=== PATIENT | female | born 1990 | race Caucasian/White ===

== ENCOUNTER → 2018-02-28 20:13 | Outpatient (CLI) | payer MEDICAID, SELFPAY | PROVIDERS: Family Provider Student in an Organized Health Care Education/Training Program; PCP Student in an Organized Health Care Education/Training Program; Visit Provider Psychiatry & Neurology Psychiatry | DX: G47.10 Hypersomnia, unspecified (principal) | CPT/HCPCS: 95810 ==

== ENCOUNTER → 2018-03-01 07:00 | Outpatient (CLI) | payer MEDICAID, SELFPAY ==
[2018-03-01 09:05] LABS: Amphetamine Urine VISTA NEGATIVE (<1000 ng/mL); Barbiturate Urine VISTA NEGATIVE (< 200 ng/mL); Benzodiazepine Urine VISTA NEGATIVE (< 200 ng/mL); Cocaine Urine VISTA NEGATIVE (< 300 ng/mL); Ecstacy Urine VISTA NEGATIVE (< 500 ng/mL); Methadone Urine VISTA NEGATIVE (< 300 ng/mL); PCP Urine VISTA NEGATIVE (< 25 ng/mL); THC Urine VISTA NEGATIVE (< 50 ng/mL); Vista UDS pH Range 6
== END ==
PROVIDERS: Psychiatry & Neurology Neurology; Family Provider Student in an Organized Health Care Education/Training Program; PCP Student in an Organized Health Care Education/Training Program
DX: G47.10 Hypersomnia, unspecified (principal); G47.00 Insomnia, unspecified; J45.909 Unspecified asthma, uncomplicated; F32.9 Major depressive disorder, single episode, unspecified; F17.200 Nicotine dependence, unspecified, uncomplicated; Z79.899 Other long term (current) drug therapy
CPT/HCPCS: 80307; 95805

== ENCOUNTER 2018-11-06 15:26 | Emergency (ER) | payer MEDICAID, SELFPAY ==
[2018-11-06 15:29] VITALS: BP 106/79; PULSE 106; RESP 14; TEMP 36.8; O2SAT 100; BMI 26.6
--- NOTE | 2018-11-06 15:47 | ED.VISSUMM ---
- ER Visit Summary Date of Service: 11/06/18 Chief Complaint: [Back pain] History of Present Illness: The patient is a 28 F [presents the emergency department complaint of back pain that started 8 days ago. Patient has had no trauma. She states she has had a similar type pain off and on for the last 5 years. Patient states sometimes the pain will last a few days and at times will last up to a few months. Patient is undergone physical therapy for this. Patient has seen a chiropractor for this. Patient saw nurse practitioner for her primary care physician for this pain 6 days ago and was referred to a spine surgeon for follow-up. Patient attempted to make a appointment with a spine surgeon Dr. Siu, however she was told she would need to have an MRI first before she could schedule the appointment and her nurse practitioner will not order an MRI for her. Patient complains of low back pain that kind of radiates out to the periphery and into her buttocks. She denies any weakness in extremities. She denies any change in bowel or bladder function. Pain is worse with certain movements such as bending. Patient states that over the years she has had multiple x-rays of her low back and no abnormality has been found other than a slight curvature in her back. Patient never had surgery on her back. She has not had any fevers.] Physical Examination: [HEENT-PERRLA, EOMI. Cranial nerves II through XII grossly intact. TMs clear. Mucous membranes moist. No adenopathy. Cardiovascular-regular rate and rhythm without murmur or ectopy Lungs-clear to auscultation, chest wall stable without crepitus or subcu emphysema Abdomen-normoactive bowel sounds, soft, nontender, no rebound or rigidity, no peritoneal signs. Back exam-patient has diffuse tenderness palpation over the lumbar spine and paraspinal musculature. She has negative straight leg raises. Deep tendon reflexes are plus out of 4 bilaterally at the patella and Achilles. Patient has normal L5 extension. Patient has normal sensation to light touch. Extremities-intact ?4, normal range of motion, normal pulses, atraumatic] Test Results: [None indicated] Emergency Department Course and Treatment: [This point I do not feel any imaging is indicated and patient drove herself to the ER therefore I will not medicate her here. Patient already on muscle relaxer and prednisone.] Treatment Plan: [Patient will be given a prescription for [place] and referral to neurosurgery for follow-up. Patient may require further imaging such as possibly MRI to evaluate further although I do not see any evidence of cauda equina at this time.] Disposition: [Discharged home in stable condition] Impression: [Acute exacerbation of chronic back pain] This note was generated with [employer] dictation software. It may contain incorrect words, spelling, and punctuation that were not noted in review of the chart prior to signing ED Disposition - Plan for ED Patient: Referrals: Haroon Samson DO [Primary Care Provider] -
--- NOTE | 2018-11-06 15:50 | ED.DCSUM_ITS ---
- ER Visit Summary Date of Service: 11/06/18 Chief Complaint: [Back pain] History of Present Illness: The patient is a 28 F [presents the emergency department complaint of back pain that started 8 days ago. Patient has had no trauma. She states she has had a similar type pain off and on for the last 5 years. Patient states sometimes the pain will last a few days and at times will last up to a few months. Patient is undergone physical therapy for this. Patient has seen a chiropractor for this. Patient saw nurse practitioner for her primary care physician for this pain 6 days ago and was referred to a spine surgeon for follow-up. Patient attempted to make a appointment with a spine surgeon Dr. Siu, however she was told she would need to have an MRI first before she could schedule the appointment and her nurse practitioner will not order an MRI for her. Patient complains of low back pain that kind of radiates out to the periphery and into her buttocks. She denies any weakness in extremities. She denies any change in bowel or bladder function. Pain is worse with certain movements such as bending. Patient states that over the years she has had multiple x-rays of her low back and no abnormality has been found other than a slight curvature in her back. Patient never had surgery on her back. She has not had any fevers.] Physical Examination: [HEENT-PERRLA, EOMI. Cranial nerves II through XII grossly intact. TMs clear. Mucous membranes moist. No adenopathy. Cardiovascular-regular rate and rhythm without murmur or ectopy Lungs-clear to auscultation, chest wall stable without crepitus or subcu emphysema Abdomen-normoactive bowel sounds, soft, nontender, no rebound or rigidity, no peritoneal signs. Back exam-patient has diffuse tenderness palpation over the lumbar spine and paraspinal musculature. She has negative straight leg raises. Deep tendon reflexes are plus out of 4 bilaterally at the patella and Achilles. Patient has normal L5 extension. Patient has normal sensation to light touch. Extremities-intact ?4, normal range of motion, normal pulses, atraumatic] Test Results: [None indicated] Emergency Department Course and Treatment: [This point I do not feel any imaging is indicated and patient drove herself to the ER therefore I will not medicate her here. Patient already on muscle relaxer and prednisone.] Treatment Plan: [Patient will be given a prescription for [place] and referral to neurosurgery for follow-up. Patient may require further imaging such as possibly MRI to evaluate further although I do not see any evidence of cauda equ tariq at this time.] Disposition: [Discharged home in stable condition] Impression: [Acute exacerbation of chronic back pain] This note was generated with [employer] dictation software. It may contain incorrect words, spelling, and punctuation that were not noted in review of the chart prior to signing ED Disposition - Plan for ED Patient: Referrals: Haroon Samson DO [Primary Care Provider] -
--- NOTE | 2018-11-06 15:52 | DCINST.ED_ITS ---
ED Disposition - Plan for ED Patient: Instructions: ED Neck Back Pain General Prescriptions: Hydrocodone Bitart/Apap 5-325 [[place] 5MG-325MG] 1 tab PO Q4H PRN PRN 2 Days #20 tab PRN Reason: Pain Referrals: Haroon Samson DO [Primary Care Provider] - 3-5 Days Andrea Plummer MD [NON-STAFF] - 3-5 Days
== END 2018-11-06 16:06 | disposition home or self-care (01) ==
LOC: ED 15:51
PROVIDERS: Emergency Provider Emergency Medicine; Family Provider Student in an Organized Health Care Education/Training Program; PCP Student in an Organized Health Care Education/Training Program
DX: M54.9 Dorsalgia, unspecified (principal); G89.29 Other chronic pain; Z72.0 Tobacco use
CPT/HCPCS: 99282

== ENCOUNTER 2020-05-20 00:45 | Emergency (ER) | payer MEDICAID, SELFPAY ==
[2020-05-20 00:46] VITALS: BP 112/66; PULSE 112; RESP 16; TEMP 36.9; O2SAT 98; BMI 20.9
--- NOTE | 2020-05-20 00:56 | EKG12_ITS ---
Test Reason : DYSRHYTHMIA Blood Pressure : / mmHG Vent. Rate : 107 BPM Atrial Rate : 107 BPM P-R Int : 126 ms QRS Dur : 082 ms QT Int : 314 ms P-R-T Axes : 061 070 040 degrees QTc Int : 419 ms Sinus tachycardia Otherwise normal ECG Confirmed by GREGORIO NAIDU, ABRAN ([id number]), photography editor ELLIOT REYES ([id number]) on 05/21/2020 11:31:54 AM Referred By: KIZZY Confirmed By:ABRAN PERKINS MD
--- NOTE | 2020-05-20 00:57 | ED.VIS.GEN ---
History of Present Illness Chief Complaint: Other, Pain/Inj Informant: Patient Onset: Days Context: Gradual Onset Timing: Continuous Current Severity: Moderate Maximum Severity: Moderate Narrative: The patient is a 30-year-old female with medical history significant for asthmatic bronchitis and insomnia that presents to the emergency department with right-sided chest pain. She states that she has been coughing for the past 3 days. She states that she said a persistent ache across her right chest that is worse when she coughs or pushes on it. She denies being short of breath over baseline. States her inhaler does seem to help with her breathing, but nothing is helped the pain. She has no history of pulmonary embolus. She denies any leg swelling. She denies any recent travel. Prior similar symptoms: No Recent Illness/Hospitalization: No Past Medical History - Allergies and Home Meds Allergies/Adverse Reactions: Allergies Penicillins Allergy (Verified 11/06/18 15:26) Anaphylaxis Primary Care Physician: Haroon Samson DO [Primary Care Provider] - Prior records reviewed: Yes Past Medical History: - - Insomnia, anxiety Surgical History: noncontributory Smoking Status: Current every day smoker Review of Systems General: Denies: Chills, Fever, Sweats Eyes: Denies: Visual changes - bilaterally, Diplopia ENT: Denies: Rhinorrhea, Sore throat Cardiovascular: Reports: Chest pain. Denies: Palpitations Respiratory: Denies: Dyspnea, Cough, Dyspnea on exertion Gastrointestinal: Denies: Abdominal pain, Nausea, Vomiting, Diarrhea, Melena, Hematochezia Genitourinary: Denies: Dysuria, Hematuria, Frequency Musculoskeletal: Denies: Back pain, Extremity Pain Skin: Denies: Rash, Wounds Neurological: Denies: Headache, Weakness, Numbness Physical Exam Vital Signs/Narrative: Vital Signs Temp Pulse Resp BP Pulse Ox 05/20/20 00:46 98.4 F 112 H 16 112/66 98 Inital Vital Signs reviewed: Yes General: Well nourished, Well developed, No Acute Distress Head: Normocephalic, Atraumatic Eyes: Perrl, EOMI ENT: Moist mucous membranes, No rhinorrhea Neck: Supple, Nontender Cardiovascular: Regular rate, Regular rhythm, No murmurs Respiratory: No distress, CTA bilaterally, Chest tenderness Abdomen: Soft, Nontender, Nondistended, Normal bowel sounds Back: Nontender, Normal Inspection Extremities: Nontender, No edema Skin: Normal color, No rash Neurological: Alert, Oriented x3, Cranial nerves II-XII grossly intact, Normal Strength, Normal Sensation Psychological: Normal affect, Normal Mood Diagnostic/Tx/Re-eval Clinical Impression(s) from Imaging Studies Chest X-Ray 05/20/20 01:27 IMPRESSION: No acute cardiopulmonary disease identified. Electronically Signed: Vitor De Luna, at 2:21 EDT Tel , Service support , - Rhythm Strip Rhythm Strip: Sinus Rhythm Rate: 90 Ectopy: None - EKG Initial EKG Interpretation: Sinus Rhythm, No Acute Injury Pattern Prior: No Prior - Medical Decision Making The patient presents with anterior chest wall pain with coughing. It is entirely reproducible on exam. There is no pleuritic component. Plan was to do metabolic work-up, but the patient states she is deathly afraid of needles and did not want this done. I obtained an x-ray and an EKG. Both were unremarkable. The patient was treated with Motrin with some improvement. Given her productive sputum and history of underlying lung disease, I will cover her with azithromycin. She will also be continued on anti-inflammatories. The patient will be discharged home. Impression 1. Costochondritis ED Disposition - Plan for ED Patient: Instructions: ED Bronchitis Asthmatic Prescriptions: Naproxen [Naprosyn] 500 mg PO BID PRN #20 tab Prescription Printed Azithromycin [Zithromax] 250 mg PO DAILY #4 tab Prescription Printed Referrals: Haroon Samson DO [Primary Care Provider] -
[2020-05-20] MEDS: Ibuprofen 600 MG Tablet PO (01:15)
--- NOTE | 2020-05-20 01:20 | ED.RN ---
patient refused iv and blood draw. patient states no needles are going into me. dr. garcia notified.
--- NOTE | 2020-05-20 01:27 | RAD_ITS ---
STUDY: X-RAY CHEST REASON FOR EXAM: Female, 30 years old. patient having right sided clavicle and chest pain that started this morning. patient with severe cough for about 4 days. TECHNIQUE: Frontal and lateral views of the chest. COMPARISON: None. FINDINGS: The lungs are clear and expanded. There is no demonstrated pleural abnormality. Normal size heart. Normal mediastinum and janice. Normal visualized pulmonary arteries. Normal visualized aortic arch and descending thoracic aorta. Scoliotic curvature to the spine. Normal visualized ribs, clavicles, and shoulders. There is no demonstrated abnormality of the visualized soft tissue structures of the upper abdomen. RAD/Chest PA and Lateral IMPRESSION: No acute cardiopulmonary disease identified. Electronically Signed: Vitor De Luna, at 2:21 EDT Tel , Service support ,
[2020-05-20] MEDS: Azithromycin 250 MG Tablet 500 MG PO (02:33)
[2020-05-20] MEDS: HYDROcodone Bitartrate/Apap 5/325 Tablet PO (02:34)
[2020-05-20 02:39] VITALS: PULSE 106; RESP 17; O2SAT 98
== END 2020-05-20 02:40 | disposition home or self-care (01) ==
PROVIDERS: Emergency Provider Emergency Medicine; PCP Student in an Organized Health Care Education/Training Program
DX: M94.0 Chondrocostal junction syndrome [Tietze] (principal); F41.9 Anxiety disorder, unspecified; J45.909 Unspecified asthma, uncomplicated; G47.00 Insomnia, unspecified; Z79.899 Other long term (current) drug therapy; F17.200 Nicotine dependence, unspecified, uncomplicated
CPT/HCPCS: 71046; 93005; 99284

== ENCOUNTER 2021-10-23 19:58 | Inpatient (IN) | payer MEDICAID, SELFPAY ==
[2021-10-23 19:58] VITALS: BP 127/81; PULSE 111; RESP 16; TEMP 36.1; O2SAT 100; BMI 22.8
[2021-10-23 20:03] VITALS: BP 127/81; PULSE 111; RESP 16; TEMP 36.1; O2SAT 100
[2021-10-23] MEDS: LORazepam 2 MG/ML Syringe 0.5 MG IV (20:30)
[2021-10-23] MEDS: HYDROmorphone 0.5 MG/0.5 ML SYRINGE IV ×2 (20:31→22:32)
[2021-10-23 20:34] LABS: Absolute Lymphocyte Count 3.02 X10^3/uL (0.83-4.51); Absolute Neutrophil Count 8.8 X10^3/uL (2.0-7.7); Basophil# 0.06 X10^3/uL; Basophil% 0.4 % (0-1); Eosinophil# 0.32 X10^3/uL; Eosinophils% 2.4 % (0-5); Hematocrit 44.5 % (37-47); Hemoglobin 15.4 g/dL (12.0-15.0); Lymphocyte # 3.02 X10^3/ul (0.83-4.51); Lymphocyte % 22.5 % (19-41); Mean Corp Hgb Conc 34.6 g/dL (32-36); Mean Corpuscular Hgb 31.9 pg (27.0-32.0); Mean Corpuscular Volume 92.1 fL (81-99); Mean Platelet Vol. 9.6 fl (6.2-12.0); Monocyte# 1.15 X10^3/uL; Monocyte% 8.6 % (0-10); NRBC Flagged by Analyzer 0 % (0-5); Neutrophil # 8.81 X10^3/uL (2.7-7.7); Neutrophil % 65.7 % (47-70); Platelet Count 260 K/mm3 (150-450); RBC Distribution Width SD 43.8 fl (35.1-43.9); Red Blood Count 4.83 M/mm3 (4.2-5.4); White Blood Count 13.4 K/mm3 (4.4-11.0)
--- NOTE | 2021-10-23 20:45 | CT_ITS ---
EXAM: CT MAXILLOFACIAL WITH INTRAVENOUS CONTRAST CLINICAL INDICATION: face swelling TECHNIQUE: Helically acquired images were obtained of the face with intravenous contrast. This CT exam was performed using one or more of the following dose reduction techniques: automated exposure control, adjustment of the mA and/or kV according to patient size, and/or use of iterative reconstruction technique. This report was created using [employer] report [employer] technology. CONTRAST: IV 100mL Isovue-300 COMPARISON: None. FINDINGS: BONES/JOINTS: Unremarkable. No displaced fracture. No discrete lytic or blastic abnormalities. SOFT TISSUES: Along the left maxilla there is a subperiosteal abscess measuring 13 x 4mm. Series 2 image 32. There is overlying soft tissue swelling. ORBITS: Unremarkable. Both globes are unremarkable. Extraocular muscles are normal. Retrobulbar fat appears unremarkable. SINUSES: Left maxillary sinus disease. MASTOID AIR CELLS: Unremarkable as visualized. Clear. DENTAL: No acute findings. No periodontal osseous erosion. CT/Sinus/Facial Bone WITH Contras IMPRESSION: 1. Left maxillary sinus disease. 2. Along the left maxilla there is a subperiosteal abscess measuring 13 x 4mm. Series 2 image 32. There is overlying soft tissue swelling. Electronically Signed: Juan Callaway MD at 21:11 EST ,
[2021-10-23 20:51] LABS: ALB/GLOB Ratio 1.1 RATIO (0.9-2.4); AST(SGOT) 11 U/L (15-37); Alanine Aminotransfer ALT/SGPT 17 U/L (13-56); Alkaline Phosphatase 56 U/L (45-117); Anion Gap 5 (5-15); BUN 6 mg/dL (7-18); BUN/Creat Ratio 7.2 RATIO (10-20); Calcium,Total 9.4 mg/dL (8.5-10.1); Chloride 108 mmol/L (98-107); Creatinine, Serum 0.83 mg/dL (0.55-1.02); EST Glomerular Filtration Rate 84 mL/min (>60); Est Glom Filt Rate - Afr Amer 101 mL/min (>60); Estimated Creatinine Clearance 79.75 ml/min; Globulin 3.8 g/dL (2.2-4.2); Glucose 92 mg/dL (74-106); Potassium 3.5 mmol/L (3.5-5.1); Protein, Total 7.8 g/dL (6.4-8.2); Sodium Level 139 mmol/L (136-145)
[2021-10-23] MEDS: Ceftriaxone 1 GM/50 ML BAG IV (20:55)
[2021-10-23] MEDS: Ciprofloxacin 400 MG/200 ML BAG 200 MG IV (21:19)
--- NOTE | 2021-10-23 21:34 | EDS_ITS ---
HPI History of Present Illness Chief Complaint: Edema Narrative Narrative: Patient presents with left-sided facial swelling. She was seen on outpatient setting and was given clindamycin she completed 3 days of 300 mg 4 times daily, her facial swelling is worse. Apparently it was presumed that the swelling was odontogenic. Patient has no fever or chills. She has no pain with movement of her left eye, no difficulty swallowing or sore throat. PFSH PFSH Home Medications L norgest/e.estradiol-e.estrad [Seasonique 0.15-0.03-0.01 Tab] 1 ea PO DAILY 10/07/16 [History Last Taken Unknown] clonazepam 1 mg PO TID PRN 11/06/18 [History Last Taken Unknown] dextroamphetamine-amphetamine [Adderall 30 mg Tablet] 30 mg PO DAILY 11/06/18 [History Last Taken Unknown] azithromycin 250 mg PO DAILY #4 tab 05/20/20 [Rx Last Taken Unknown] naproxen 500 mg PO BID PRN #20 tab 05/20/20 [Rx Last Taken Unknown] Allergy/AdvReac Type Severity Reaction Status Date / Time Penicillins Allergy Anaphylaxis Verified 11/06/18 15:26 Social History Smoking Status: Current every day smoker tobacco type: cigarettes ROS ROS ED ROS Narrative Past medical history: Reviewed, noncontributory Medications: Reviewed Social history: Noncontributory Review of systems: All systems negative except as indicated General: No fever Eyes: No visual changes ENT: As in HPI Neck: No neck pain Cardiovascular: No chest pain Respiratory: No shortness of breath or cough Gastrointestinal: No abdominal pain, nausea vomiting or diarrhea Musculoskeletal: Denies myalgias no difficulty with ambulation Skin: No rash Neurological: No memory loss, confusion or any focal weakness, no facial droop Psych: No recent behavioral changes Hematologic: No easy bleeding or easy bruising EXAM Physical Exam Narrative Exam Narrative: Physical exam General: Patient appears uncomfortable. Head: Normocephalic, Atraumatic Eyes: Conjunctiva not pale, full range of motion without any pain ENT: Patient has left-sided facial edema, there is some periorbital edema but as above there is no pain with full range of motion. She has a normal posterior oropharynx with a normal voice. Normal soft palate. No swelling edema or pain under the tongue. Dental: Patient has widespread dental disease but no significant periapical abscess or any kind of significant pain any particular tooth. Neck: Supple, Nontender, No lymphadenopathy Cardiovascular: Slight tachycardic Respiratory: No distress, CTA bilaterally Abdomen: Soft, Nontender, Nondistended Back: Nontender, Normal Inspection. Negative for: CVA tenderness Extremities: Nontender, No edema Skin: Normal color, No rash Neurological: Alert, Normal Strength, Normal Sensation Psychological: She is quite anxious Const Vital Signs: 10/23/21 19:58 10/23/21 20:03 Temperature 96.9 F L 96.9 F L Temperature Source Temporal Temporal Pulse Rate 111 H 111 H Respiratory Rate 16 16 Blood Pressure 127/81 H 127/81 H Blood Pressure Mean 96 96 Pulse Ox 100 100 Oxygen Delivery Method Room Air Room Air MDM MDM MDM Narrative Medical decision making narrative: Patient is found to have a periosteal maxillary abscess, I talked to ENT, apparently they will be able to consult on the patient since or maxillary facial surgery is not available. Discussed with hospitalist for admission. Antibiotics were given. Lab Data Labs: Laboratory Results - last 24 hr 10/23/21 10/23/21 20:20 20:20 WBC 13.4 H RBC 4.83 Hgb 15.4 H Hct 44.5 MCV 92.1 MCH 31.9 MCHC 34.6 RDW Std Deviation 43.8 RDW Coeff of Sriram 13.0 Plt Count 260 MPV 9.6 Immature Gran % (Auto) 0.400 Neut % (Auto) 65.7 Lymph % (Auto) 22.5 [place] % (Auto) 8.6 Eos % (Auto) 2.4 Baso % (Auto) 0.4 Absolute Neuts (auto) 8.8 H Absolute Lymphs (auto) 3.02 Nucleated RBC % 0 Sodium 139 Potassium 3.5 Chloride 108 H Carbon Dioxide 26.0 Anion Gap 5 BUN 6 L Creatinine 0.83 Estim Creat Clear Calc 79.75 Est GFR (MDRD) Af Amer 101 Est GFR (MDRD) Non-Af 84 BUN/Creatinine Ratio 7.2 L Glucose 92 Calcium 9.4 Total Bilirubin 0.60 AST 11 L ALT 17 Alkaline Phosphatase 56 Total Protein 7.8 Albumin 4.0 Globulin 3.8 Albumin/Globulin Ratio 1.1 Radiography Diagnostic Testing: Clinical Impression(s) from Imaging Studies Facial/Sinus 10/23/21 20:45 IMPRESSION: 1. Left maxillary sinus disease. 2. Along the left maxilla there is a subperiosteal abscess measuring 13 x 4mm. Series 2 image 32. There is overlying soft tissue swelling. Electronically Signed: Juan Callaway MD at 21:11 EST Reading Location ID and State: [facility] / [place] , Service support , Discharge Plan Triage Chief Complaint: Edema ED Provider: Keon Sargent Dx/Rx/DC Orders Clinical Impression: Abscess of face Prescriptions: No Action L norgest/e.estradiol-e.estrad [Seasonique] 1 EACH Tbdspk.3mo 1 ea PO DAILY RF: 0 clonazepam 1 MG tablet 1 mg PO TID PRN RF: 0 dextroamphetamine-amphetamine [Adderall] 30 MG tablet 30 mg PO DAILY RF: 0 azithromycin 250 MG tablet 250 mg PO DAILY Qty: 4 RF: 0 naproxen 500 MG tablet 500 mg PO BID PRN Qty: 20 RF: 0 Primary Care Provider: Haroon Samson Referrals: Haroon Samson DO [Primary Care Provider] - Disposition Disposition: Acute Care Hospital [facility]
--- NOTE | 2021-10-23 21:44 | PCM.HP.STD ---
HPI - General General Date of Admission: 10/23/21 HPI Narrative RUPALI YA, is a 31 F who presents with left facial pain and swelling. She states that this has been going on for the last 3 days she was started on clindamycin as an outpatient and says that she has been taking it consistently. She cannot take penicillin secondary to anaphylaxis. She presented to the hospital because of worsening pain and swelling. CT of her face demonstrates a subperiosteal abscess along the left maxilla. ENT was notified from the ER and is willing to evaluate the patient for possible drainage. She was given multiple antibiotics in the ER as well as pain medication. She denies any fevers or chills at home denies any facial trauma but states that she knows that she has several bad teeth on that side that she has not addressed as an outpatient. [facility] Home Medications NK 10/23/21 [History Last Taken Unknown] Allergy/AdvReac Type Severity Reaction Status Date / Time Penicillins Allergy Anaphylaxis Verified 11/06/18 15:26 no significant family history Surgical History (Updated 10/23/21 @ 22:[address] Marcos Bowden MD) Status post tooth extraction Social History Smoking Status: Current every day smoker tobacco type: cigarettes ROS Constitutional Constitutional: Denies chills, fatigue, fever(s) or malaise Eyes Eyes: Denies blurry vision ENT HEENT: Reports facial pain; Denies headache(s) or nasal discharge Cardiovascular Cardiovascular: Denies chest pain, dyspnea on exertion or syncope Respiratory/Chest Respiratory/Chest: Denies cough, shortness of breath at rest or shortness of breath with exertion Gastrointestinal Gastrointestinal: Denies constipation, diarrhea, nausea or vomiting Genitourinary Genitourinary: Denies dysuria Neurologic Neurologic: Denies focal weakness, numbness or tremor(s) Psychiatric Psychiatric: Denies anxiety or depression Vital Signs Vital Signs Vital Signs: 10/23/21 19:58 10/23/21 20:03 Temperature 96.9 F L 96.9 F L Temperature Source Temporal Temporal Pulse Rate 111 H 111 H Respiratory Rate 16 16 Blood Pressure 127/81 H 127/81 H Blood Pressure Mean 96 96 Pulse Ox 100 100 Oxygen Delivery Method Room Air Room Air Weight Weight: 129 lb Body Mass Index (BMI) 22.8 Physical Exam Const alert, oriented x3 and no apparent distress General Appearance: cooperative HEENT normocephalic and moist oral mucous membranes Face and Sinus: facial erythema left Positive for maxilla and facial edema left Positive for maxilla; Negative for facial crepitus or fluctuance Eyes PERRL, EOMs intact bilaterally and conjunctivae normal Neck supple and no JVD Resp normal respiratory effort, no retractions, no use of accessory muscles and clear to auscultation bilaterally Auscultation: Negative for crackles, rales, rhonchi or wheezes Cardio regular rate, regular rhythm, S1 normal heart sound, S2 normal heart sound and no murmurs GI soft to palpation, non-tender and non-distended; Negative for hepatosplenomegaly Extremity no clubbing, cyanosis or edema Skin no rashes or lesions noted Neuro no focal motor deficits and no sensory deficits noted Psych affect normal Appearance: appropriate Results Lab / Micro Data Result Diagrams: 10/23/21 20:20 10/23/21 20:20 Labs: Laboratory Results - last 24 hr 10/23/21 20:20: WBC 13.4 H, RBC 4.83, Hgb 15.4 H, Hct 44.5, MCV 92.1, MCH 31.9, MCHC 34.6, RDW Std Deviation 43.8, RDW Coeff of Sriram 13.0, Plt Count 260, MPV 9.6, Immature Gran % (Auto) 0.400, Neut % (Auto) 65.7, Lymph % (Auto) 22.5, [place] % (Auto) 8.6, Eos % (Auto) 2.4, Baso % (Auto) 0.4, Absolute Neuts (auto) 8.8 H, Absolute Lymphs (auto) 3.02, Nucleated RBC % 0 10/23/21 20:20: Sodium 139, Potassium 3.5, Chloride 108 H, Carbon Dioxide 26.0, Anion Gap 5, BUN 6 L, Creatinine 0.83, Estim Creat Clear Calc 79.75, Est GFR (MDRD) Af Amer 101, Est GFR (MDRD) Non-Af 84, BUN/Creatinine Ratio 7.2 L, Glucose 92, Calcium 9.4, Total Bilirubin 0.60, AST 11 L, ALT 17, Alkaline Phosphatase 56, Total Protein 7.8, Albumin 4.0, Globulin 3.8, Albumin/Globulin Ratio 1.1 Radiology Impression Facial/Sinus 10/23/21 20:45 IMPRESSION: 1. Left maxillary sinus disease. 2. Along the left maxilla there is a subperiosteal abscess measuring 13 x 4mm. Series 2 image 32. There is overlying soft tissue swelling. Electronically Signed: Juan Callaway MD at 21:11 EST , Assessment & Plan Assessment/Plan (1) Abscess of face: PLAN: 1. Failed outpatient antibiotic for left maxillary subperiosteal abscess ?She was on 300 mg of clindamycin every 6 hours, will transition to 600 mg q. 8 and also add Levaquin ?She received a dose of vancomycin, Rocephin, and Cipro in the ER ?She states that she has an antibiotic reaction to penicillin ?We will consult ENT for possible intervention ?We will provide her with morphine and oxycodone to try to control her pain if necessary can also add Toradol ?Also put her on some IV fluids as she has not been eating or drinking very much over the last several days DVT: Ambulation Charges/Coding Visit Charges Inpatient E&M: 70162 Init Hosp L2
[2021-10-23 22:26] VITALS: BP 117/87; PULSE 78; RESP 18; TEMP 36.7; O2SAT 100
[2021-10-23 23:13] VITALS: BMI 22.4
[2021-10-23 23:32] VITALS: BP 119/75; PULSE 88; RESP 16; TEMP 37; O2SAT 98
[2021-10-24] MEDS: 0.9% Normal Saline 1,000 ML 100 ML IV ×2 (00:24→10:46)
[2021-10-24] MEDS: 0.9% Saline Lock 10 ML Syringe IV ×2 (00:24→13:12)
[2021-10-24] MEDS: DiphenhydrAMINE 25 MG Capsule PO ×2 (00:26→13:06)
--- NOTE | 2021-10-24 01:25 | NURSING ---
Redness noted to have subsided on pt's back/abd. Clinamycin hung at this time, pt educated to let staff know if she starts to feel itchy. Pt agrees.
[2021-10-24 05:22] VITALS: BP 112/81; PULSE 89; RESP 18; TEMP 36.9; O2SAT 97
[2021-10-24] MEDS: Morphine 2 MG/ML Syringe IV ×2 (05:26→13:11)
[2021-10-24 05:34] LABS: Absolute Lymphocyte Count 1.87 X10^3/uL (0.83-4.51); Absolute Neutrophil Count 9.6 X10^3/uL (2.0-7.7); Basophil# 0.04 X10^3/uL; Basophil% 0.3 % (0-1); Eosinophil# 0.15 X10^3/uL; Eosinophils% 1.2 % (0-5); Hematocrit 40.3 % (37-47); Hemoglobin 13.5 g/dL (12.0-15.0); Lymphocyte # 1.87 X10^3/ul (0.83-4.51); Lymphocyte % 14.6 % (19-41); Mean Corp Hgb Conc 33.5 g/dL (32-36); Mean Corpuscular Hgb 30.5 pg (27.0-32.0); Mean Corpuscular Volume 91.2 fL (81-99); Monocyte# 1.12 X10^3/uL; Monocyte% 8.7 % (0-10); NRBC Flagged by Analyzer 0 % (0-5); Neutrophil # 9.59 X10^3/uL (2.7-7.7); Neutrophil % 74.9 % (47-70); Platelet Count 249 K/mm3 (150-450); RBC Distribution Width CV 12.9 % (11.6-14.6); RBC Distribution Width SD 43.1 fl (35.1-43.9); Red Blood Count 4.42 M/mm3 (4.2-5.4); White Blood Count 12.8 K/mm3 (4.4-11.0)
[2021-10-24 06:04] LABS: Anion Gap 4 (5-15); BUN 6 mg/dL (7-18); BUN/Creat Ratio 9.7 RATIO (10-20); Calcium,Total 8.6 mg/dL (8.5-10.1); Chloride 110 mmol/L (98-107); Creatinine, Serum 0.62 mg/dL (0.55-1.02); EST Glomerular Filtration Rate 118 mL/min (>60); Est Glom Filt Rate - Afr Amer 143 mL/min (>60); Estimated Creatinine Clearance 102.07 ml/min; Glucose 79 mg/dL (74-106); Potassium 4.4 mmol/L (3.5-5.1); Sodium Level 137 mmol/L (136-145)
[2021-10-24] MEDS: oxyCODONE 5 MG Tablet PO (08:53)
[2021-10-24 10:03] VITALS: BP 118/74; PULSE 82; RESP 18; TEMP 37.2; O2SAT 100
[2021-10-24] MEDS: levoFLOXacin IV 750 MG/150 ML BAG 100 MG IV (10:46)
--- NOTE | 2021-10-24 11:40 | CASEMGMT ---
MAXINE THOMAS PREDATORY GAME HUNTER WILLIAM to room to meet with patient for initial transition planning/care coordination assessment. MAXINE THOMAS introduced self and role at [facility]. Pt laying in bed. Sig Darrius brown, @ bedside. Pt Care providers, pharmacy, and demographics verified/updated at this time. PCP: Dr Samson Specialists: None Preferred Pharmacy: [facility] Insurance: [employer] Prescription Benefit: Yes Living Will/HPOA: Pt does not currently have LW/HCPOA and declines info at this time. Pt states she would want her sig other, Darrius, to be healthcare decision maker but declines wanting to complete AD at this time. Pt and Darrius both made aware LNOK, which would be her parents, would be legal decision makers for healthcare in the event pt was unable to make decisions, but pt states still does not want to complete AD. LNOK: Darrius Chery. Pt's parents are still living, but pt states, They are to me. Living Arrangements: Lives w/sig stephanie, Darrius, and pt's 11-yr-old daughter. Independent. Self-employed Transportation: Pt and Darrius both drive DME: Denies using any DME and denies needs. HHC/SNF: No hx of either. No needs identified. PLAN: Home William [place] RN, CM
--- NOTE | 2021-10-24 11:52 | PCM.RX.CS ---
Consult Pharmacy has been consulted to manage selected antiobiotic: Vancomycin Type of Consult: New start Suspected Infection: Skin/Soft tissue Labs: Sodium 137 mmol/L (136-145) 10/24/21 05:00 Potassium 4.4 mmol/L (3.5-5.1) 10/24/21 05:00 Chloride 110 mmol/L (98-107) H 10/24/21 05:00 Carbon Dioxide 23.0 mmol/L (21.0-32.0) 10/24/21 05:00 Anion Gap 4 (5-15) L 10/24/21 05:00 BUN 6 mg/dL (7-18) L 10/24/21 05:00 Creatinine 0.62 mg/dL (0.55-1.02) 10/24/21 05:00 Est GFR (MDRD) Af Amer 143 mL/min (>60) 10/24/21 05:00 Est GFR (MDRD) Non-Af 118 mL/min (>60) 10/24/21 05:00 BUN/Creatinine Ratio 9.7 RATIO (10-20) L 10/24/21 05:00 Glucose 79 mg/dL (74-106) 10/24/21 05:00 Goal Trough: 15-20 mcg/mL Pharmacy Plan for Drug Dosing: NEW START IV VANCOMYCIN Consulting Physician: Dr. Sina Young Indication: Abcess Goal Trough: 15-20 SrCr: 0.62 CrCl: 102 mls/min Comments: pt to receive a 1500mg (25mg/kg) loading dose 10/24/21 at 1200 Vancomcyin Dose: based on pts weight and renal function, recommend an initial dose of 750mg q8h to start 8 hours after the loading dose. trough before the 4th total dose Pending Level: 10/25/21 at 1130 Pharmacy Service will continue to monitor and adjust dosing as required. Follow-Up Labs: Trough Vancomycin - 10/25/21 at 1130
--- NOTE | 2021-10-24 12:27 | PCM.PN.BLA ---
Progress Note Asked to see the patient at the request of Dr. Pritchard for a facial abscess History of present illness: Patient is a 31-year-old white female who for the past 4 days has had left facial pain. She was placed on clindamycin by an urgent care. Despite that her facial swelling has been getting worse. She presented to the emergency room last night. She had a CT scan which revealed a left premaxilla abscess. She was admitted for IV antibiotics. Past medical history: None Past surgical history: Dental extractions Allergies: Penicillin Medications: Clindamycin Social HX: +smoker Fam HX: non contributory ROS- PE: The patient is awake alert in no acute distress. Scalp and skull are normal. Nasal exam reveals no purulence. Mouth oropharynx reveals obvious fluctuance in the left maxillary gingivolabial sulcus. She is tender to palpation in this area. Neck is supple no adenopathy. Face reveals edema of the left cheek extending up into the left infraorbital area. There is no erythema of the periorbital tissue. wbc: =13.4 CT : Left premaxilla collection. Obvious periapical lucency on coronals of the corresponding tooth. There is some mild underlying inflammation at the floor of the left maxillary sinus without air-fluid levels in the maxillary sinus. Procedure: 1% lidocaine with epinephrine was injected into the mucosa overlying the intended incision in the gingivolabial sulcus. After sufficient anesthesia and vasoconstriction, an incision was made with a scalpel. I then placed a hemostat into the abscess cavity and drained the purulence. This was cultured. She tolerated this well without complications. Assessment: Facial abscess and facial cellulitis secondary to a dentigerous source. Plan: We will continue IV antibiotics as outlined by infectious disease. Follow cultures. She will need to follow up with oral surgery for tooth extraction.
--- NOTE | 2021-10-24 12:43 | PCM.CONS.GEN ---
Assessment & Plan Assessment/Plan (1) Abscess of face: PLAN: Consistent with dental source. Worsened on outpt clinda. High risk of cdiff with clinda and levaquin here. Likely Red Man Syndrome with vanc in the ED. Will do vanc/ceftriaxone/flagyl for broader coverage; benadryl and slowed infusion rate with the vanc. ENT is seeing for possible I&D. Will follow, thank you. Has had covid shot x2, encouraged her to get booster. D/w nursing and Dr. Vaz. HPI Consult Data Date of Consult: 10/24/21 HPI Narrative HPI Narrative: RUPALI YA, is a 31 F with past h/o dental abscesses, presented with 4 days progressive L face pain/swelling/redness. No drainage in her mouth, no fever. Was seen at [facility], given clinda 300mg 4x/day, sx worsened over the 3 days she took it. Came to ED, CT done, given vanc/ceftriaxone, developed rapid redness/flushing/itching, resolved with stopping abx and benadryl. Admitted on clinda/levaquin, feeling miserable. Full ROS performed and neg except as noted above. Reports throat closed with PCN at age 1. Has taken keflex without issue. [facility] Medical History Asthma Home Medications NK 10/23/21 [History Last Taken Unknown] Allergy/AdvReac Type Severity Reaction Status Date / Time Penicillins Allergy Anaphylaxis Verified 11/06/18 15:26 Family History no significant family his Surgical History Status post tooth extraction Social History Smoking Status: Current every day smoker tobacco type: cigarettes Physical Exam Const alert and oriented x3 General Appearance: cooperative Exam Limitations: no limitations HEENT normocephalic and head/scalp atraumatic HEENT Narrative: L face warmth, redness, induration Eyes PERRL and EOMs intact bilaterally Neck supple and No nodes Resp normal air movement and clear to auscultation bilaterally Cardio regular rate and regular rhythm GI soft to palpation, non-tender and non-distended Extremity no clubbing, cyanosis or edema Skin no rashes or lesions noted Neuro CN's II-XII intact bilaterally Lab / Micro Data Result Diagrams: 10/24/21 05:00 10/24/21 05:00 Labs: Laboratory Results - last 24 hr 10/23/21 20:20: WBC 13.4 H, RBC 4.83, Hgb 15.4 H, Hct 44.5, MCV 92.1, MCH 31.9, MCHC 34.6, RDW Std Deviation 43.8, RDW Coeff of Sriram 13.0, Plt Count 260, MPV 9.6, Immature Gran % (Auto) 0.400, Neut % (Auto) 65.7, Lymph % (Auto) 22.5, [place] % (Auto) 8.6, Eos % (Auto) 2.4, Baso % (Auto) 0.4, Absolute Neuts (auto) 8.8 H, Absolute Lymphs (auto) 3.02, Nucleated RBC % 0 10/23/21 20:20: Sodium 139, Potassium 3.5, Chloride 108 H, Carbon Dioxide 26.0, Anion Gap 5, BUN 6 L, Creatinine 0.83, Estim Creat Clear Calc 79.75, Est GFR (MDRD) Af Amer 101, Est GFR (MDRD) Non-Af 84, BUN/Creatinine Ratio 7.2 L, Glucose 92, Calcium 9.4, Total Bilirubin 0.60, AST 11 L, ALT 17, Alkaline Phosphatase 56, Total Protein 7.8, Albumin 4.0, Globulin 3.8, Albumin/Globulin Ratio 1.1 10/24/21 05:00: WBC 12.8 H, RBC 4.42, Hgb 13.5, Hct 40.3, MCV 91.2, MCH 30.5, MCHC 33.5, RDW Std Deviation 43.1, RDW Coeff of Sriram 12.9, Plt Count 249, MPV 10.0, Immature Gran % (Auto) 0.300, Neut % (Auto) 74.9 H, Lymph % (Auto) 14.6 L, [place] % (Auto) 8.7, Eos % (Auto) 1.2, Baso % (Auto) 0.3, Absolute Neuts (auto) 9.6 H, Absolute Lymphs (auto) 1.87, Nucleated RBC % 0 10/24/21 05:00: Sodium 137, Potassium 4.4, Chloride 110 H, Carbon Dioxide 23.0, Anion Gap 4 L, BUN 6 L, Creatinine 0.62, Estim Creat Clear Calc 102.07, Est GFR (MDRD) Af Amer 143, Est GFR (MDRD) Non-Af 118, BUN/Creatinine Ratio 9.7 L, Glucose 79, Calcium 8.6 Radiology Impression Facial/Sinus 10/23/21 20:45 IMPRESSION: 1. Left maxillary sinus disease. 2. Along the left maxilla there is a subperiosteal abscess measuring 13 x 4mm. Series 2 image 32. There is overlying soft tissue swelling. Electronically Signed: Juan Clalaway MD at 21:11 EST ,
[2021-10-24] MEDS: Lidocaine 2% /Epi 1:100 (20ml) 20 ML VIAL INFILT (13:03)
[2021-10-24] MEDS: metroNIDAZOLE 500 MG Tablet PO (13:07)
--- NOTE | 2021-10-24 13:26 | PCM.DC ---
Discharge Instructions Diet Discharge Diet: No restrictions Activity Discharge Activity: Return to Normal Activity Follow Up Care Test Results: Test results from this visit will be discussed in further detail at your follow-up appointment, if applicable. Discharge Plan Admission Admit Date/Time: 10/23/21 21:51 Primary Reason for Your Visit: Left maxillary abscess Attending Provider: Nat Grier Primary Care Provider: Haroon Samson Consulting Providers: Mauricio Vaz ; Cornell Young Instructions Additional Instructions / Restrictions: Take all your antibiotics as prescribed. You need to see a dentist/maxillofacial surgeon as soon as possible. Continue to maintain good oral hygiene Discharge Orders/Prescriptions Prescriptions: New metronidazole 500 mg Tablet 500 mg PO TIDCM 7 Days Qty: 21 RF: 0 cefdinir 300 mg capsule 300 mg PO BID 7 Days Qty: 14 RF: 0 Referrals / Follow Up: Haroon Samson DO [Primary Care Provider] - Within 1 Week Disposition Disposition (needs filled in before D/C Order can be placed): Home, Self Care
--- NOTE | 2021-10-24 13:36 | PCM.DC.SUM ---
Providers Date of Admission: 10/23/21 Date of Discharge: 10/24/21 Primary Care Physician: Dr. Haroon Samson, Consultations 10/23/21 23:12 Consult: ENT Routine Consulting Provider: Mauricio Vaz Reason for Consult: Subperiosteal abscess along the left maxilla EMERGENT Consult: No MD Notified: Yes Date Notified: 10/23/21 Time Notified: 21:49 Method of Notification: Provider Initiated Comments:: per report ENT was notified in ED 10/24/21 10:03 Consult: Infectious Disease Routine Consulting Provider: Cornell Young Reason for Consult: Left maxillary abscess EMERGENT Consult: No MD Notified: Yes Date Notified: 10/24/21 Time Notified: 10:54 Method of Notification: text via cortex Reason For Visit: abscess Diagnosis Discharge Diagnosis (1) Abscess of face: Status: Acute Code(s): L02.01 - Cutaneous abscess of face (2) Acute abscess of maxillary sinus: Status: Acute Code(s): J01.00 - Acute maxillary sinusitis, unspecified Medications at Discharge Home Medications cefdinir 300 mg PO BID 7 Days #14 cap 10/24/21 metronidazole 500 mg PO TIDCM 7 Days #21 tab 10/24/21 Hospital Course Operations None Procedures None Summary of Care Provided Minutes Spent on Discharge: 40 Hospital Course: 31-year-old female with past medical history of asthma, history of dental abscesses who presented with 4-day history of progressive left facial pain and swelling. She denied any fever or chills. She was seen in the outpatient and given clindamycin. She took it for 3 days prior to admission. In the ED, her white cell count was elevated at 13.4. CT of the face showed a subperiosteal abscess along the left maxilla. Patient was admitted to the hospital, ENT was consulted. She was managed on IV clindamycin and Levaquin. She was transitioned to IV vancomycin, ceftriaxone and Flagyl. ENT performed a bedside I&D through the left gingival labial sulcus. Purulence was drained, cultures sent. This was felt to be secondary to attempted to reduce dose. She was discharged on 1 week of oral cefdinir and Flagyl. She will need to follow-up with a dentist or maxillofacial surgeon for tooth extraction. Physical Exam Narrative Physical exam: General: Alert, Oriented x3, Cooperative, No apparent distress, Well developed HEENT: Atraumatic, left facial swelling Oral: Moist Mucosa Neck: Supple Lungs: Clear to auscultation Cardiovascular: HS I+II, regular, no murmurs Abdomen: Bowel Sounds Present, Soft, Non Tender Extremities: No edema Skin: No rashes, No breakdown Neurological: Grossly intact Psych/Mental Status: Appropriate Weight / BMI Weight Weight: 57.5 kg Body Mass Index (BMI) 22.4 ABG / Lab / Microbiology Data Result Diagrams: 10/24/21 05:00 10/24/21 05:00 Laboratory: Laboratory Results - last 24 hr 10/23/21 20:20: WBC 13.4 H, RBC 4.83, Hgb 15.4 H, Hct 44.5, MCV 92.1, MCH 31.9, MCHC 34.6, RDW Std Deviation 43.8, RDW Coeff of Sriram 13.0, Plt Count 260, MPV 9.6, Immature Gran % (Auto) 0.400, Neut % (Auto) 65.7, Lymph % (Auto) 22.5, [place] % (Auto) 8.6, Eos % (Auto) 2.4, Baso % (Auto) 0.4, Absolute Neuts (auto) 8.8 H, Absolute Lymphs (auto) 3.02, Nucleated RBC % 0 10/23/21 20:20: Sodium 139, Potassium 3.5, Chloride 108 H, Carbon Dioxide 26.0, Anion Gap 5, BUN 6 L, Creatinine 0.83, Estim Creat Clear Calc 79.75, Est GFR (MDRD) Af Amer 101, Est GFR (MDRD) Non-Af 84, BUN/Creatinine Ratio 7.2 L, Glucose 92, Calcium 9.4, Total Bilirubin 0.60, AST 11 L, ALT 17, Alkaline Phosphatase 56, Total Protein 7.8, Albumin 4.0, Globulin 3.8, Albumin/Globulin Ratio 1.1 10/24/21 05:00: WBC 12.8 H, RBC 4.42, Hgb 13.5, Hct 40.3, MCV 91.2, MCH 30.5, MCHC 33.5, RDW Std Deviation 43.1, RDW Coeff of Sriram 12.9, Plt Count 249, MPV 10.0, Immature Gran % (Auto) 0.300, Neut % (Auto) 74.9 H, Lymph % (Auto) 14.6 L, [place] % (Auto) 8.7, Eos % (Auto) 1.2, Baso % (Auto) 0.3, Absolute Neuts (auto) 9.6 H, Absolute Lymphs (auto) 1.87, Nucleated RBC % 0 10/24/21 05:00: Sodium 137, Potassium 4.4, Chloride 110 H, Carbon Dioxide 23.0, Anion Gap 4 L, BUN 6 L, Creatinine 0.62, Estim Creat Clear Calc 102.07, Est GFR (MDRD) Af Amer 143, Est GFR (MDRD) Non-Af 118, BUN/Creatinine Ratio 9.7 L, Glucose 79, Calcium 8.6 Radiography Diagnostic Testing: Radiology Impression Facial/Sinus 10/23/21 20:45 IMPRESSION: 1. Left maxillary sinus disease. 2. Along the left maxilla there is a subperiosteal abscess measuring 13 x 4mm. Series 2 image 32. There is overlying soft tissue swelling. Electronically Signed: Juan Callaway MD at 21:11 EST Reading Location ID and State: [facility] / [place] , Service support , D/C Instructions Discharge Diet: No restrictions Meaningful Use Info Meaningful Use Diagnoses (Choose all that apply): None applicable Discharge Plan Admission Admit Date/Time: 10/23/21 21:51 Primary Reason for Your Visit: Left maxillary abscess Attending Provider: Nat Grier Primary Care Provider: Haroon Samson Consulting Providers: Mauricio Vaz ; Cornell Young Instructions Additional Instructions / Restrictions: Take all your antibiotics as prescribed. You need to see a dentist/maxillofacial surgeon as soon as possible. Continue to maintain good oral hygiene Discharge Orders/Prescriptions Prescriptions: New metronidazole 500 mg Tablet 500 mg PO TIDCM 7 Days Qty: 21 RF: 0 cefdinir 300 mg capsule 300 mg PO BID 7 Days Qty: 14 RF: 0 Referrals / Follow Up: Haroon Samson DO [Primary Care Provider] - Within 1 Week Disposition Disposition (needs filled in before D/C Order can be placed): Home, Self Care Charges/Coding Visit Charges Inpatient E&M: 62312 Disch Hosp
[2021-10-24 16:25] VITALS: BP 124/75; PULSE 82; RESP 18; TEMP 37; O2SAT 100
== END 2021-10-24 16:40 | disposition home or self-care (01) | DRG 115 ==
LOC: ED 21:46 → MS3 22:17
PROVIDERS: Admitting Provider Family Medicine; Emergency Provider Emergency Medicine; PCP Student in an Organized Health Care Education/Training Program; Visit Provider Internal Medicine
DX: K12.2 Cellulitis and abscess of mouth (principal); F17.210 Nicotine dependence, cigarettes, uncomplicated; J45.909 Unspecified asthma, uncomplicated
CPT/HCPCS: 70487; 80048; 80053; 85025; 87040; 87070; 87075; 87077; 87186; 87205; 99283; J7030; J7040; Q9967; A4216; J0744